=== PATIENT | male | born 2005 | race Caucasian/White ===

== ENCOUNTER 2024-11-17 05:00 | Emergency (ER) | payer OTHER ==
[~2024-11-17] VITALS: Ht 170.2 cm; Wt 52.0 kg
[2024-11-17 05:04] VITALS: TEMP 36.9; O2SAT 98
[2024-11-17 07:05] VITALS: BP 136/82; PULSE 98; RESP 18
[2024-11-17] MEDS: IBUPROFEN 600MG TABLET PO STA (07:05)
[2024-11-17] MEDS: ONDANSETRON 4MG ODT PO STA (07:05)
[2024-11-17 07:49] LABS: CHLORIDE 99 mEq/L (98-107); HEMATOCRIT. 35.4 % (42.0-52.0); HEMOGLOBIN. 12.5 g/dL (14.0-18.0); MEAN CORPUSCULAR HEMOGLOBIN 28.6 pg (28.0-32.0); MEAN CORPUSCULAR HGB CONC 35.3 g/dL (31.0-37.0); MEAN CORPUSCULAR VOLUME 81.1 fL (80.0-94.0); MEAN PLATELET VOLUME 8.8 fl (7.4-10.4); PLATELET 220 x1000/uL (130-400); POTASSIUM 3.1 mEq/L (3.5-5.1); RED BLOOD CELL COUNT 4.37 mill/uL (4.7-6.1); RED CELL DISTRIBUTION WIDTH 12.8 % (11.6-14.6); SODIUM 133 mEq/L (136-145); WHITE BLOOD COUNT 9.9 x1000/uL (4.5-11.0)
[2024-11-17 07:50] LABS: CALCIUM 8.7 mg/dL (8.7-10.4); CARBON DIOXIDE 24 mEq/L (21-32); DIFFERENTIAL COMMENT 1
[2024-11-17 07:53] LABS: INR 1.1; PROTHROMBIN TIME 11.9 sec (9.6-11.0)
[2024-11-17 07:55] LABS: CREATININE 0.7 mg/dL (0.6-1.3); GLUCOSE 140 mg/dL (70-105); UREA NITROGEN BLOOD 6 mg/dL (9-23)
[2024-11-17 08:44] LABS: ETHANOL BLOOD < 10 mg/dL (<10)
[2024-11-17 09:01] LABS: INFLUENZA TYPE A Presumptive Negative (Pres. Neg.)
[2024-11-17 09:02] LABS: INFLUENZA TYPE B Presumptive Negative (Pres. Neg.)
[2024-11-17 09:37] LABS: ALANINE AMINOTRANSFERASE 15 IU/L (10-49); ASPARTATE AMINOTRANSFERASE 20 IU/L (<34)
[2024-11-17 10:27] LABS: CLARITY URINE CLEAR (CLEAR); COLOR URINE DARK YELLOW (YELLOW); GLUCOSE URINE NEGATIVE (NEGATIVE); KETONES URINE 2+ (NEGATIVE); LEUKOCYTE ESTERASE URINE TRACE (NEGATIVE); NITRITE URINE NEGATIVE (NEGATIVE); OCCULT BLOOD URINE NEGATIVE (NEGATIVE); PROTEIN URINE 2+ (NEGATIVE); SPECIFIC GRAVITY URINE 1.026 (1.005-1.030)
[2024-11-17 10:47] LABS: *AMPHETAMINES SCREEN URINE NEGATIVE (NEGATIVE); *BARBITURATES SCREEN URINE NEGATIVE (NEGATIVE); *BENZODIAZEPINES SCREEN URINE NEGATIVE (NEGATIVE); *COCAINE SCREEN URINE NEGATIVE (NEGATIVE); METHADONE URINE SCREEN NEGATIVE (NEGATIVE)
[2024-11-17 10:48] LABS: CANNABINOID URINE SCREEN PRESUMPTIVE POSITIVE (NEGATIVE); ECSTASY MDMA SCREEN URINE NEGATIVE (NEGATIVE); OPIATES URINE SCREEN NEGATIVE (NEGATIVE); PHENCYCLIDINE URINE SCREEN NEGATIVE (NEGATIVE)
[2024-11-17 10:53] LABS: BACTERIA URINE 1+; RBC URINE 0-2 /hpf (0-2); SQUAMOUS EPITHELIAL CELL URINE NONE SEEN /lpf (RARE/1+); YEAST URINE NONE SEEN
[2024-11-17] MEDS: SODIUM CHLORIDE 0.9% 1,000 ML IV ONE (11:53)
[2024-11-17] MEDS: CEFTRIAXONE SODIUM 1G VIAL IV ONE (12:28)
[2024-11-17] MEDS: POTASSIUM CHLORIDE 20MEQ TABLET SR PO ONE (12:28)
[2024-11-17] MEDS ORDERED: IBUP-2029 MT (15:45)
[2024-11-17] MEDS ORDERED: ONDA4TAB50 MT (15:47)
[2024-11-17] MEDS ORDERED: NITR-87 MT (15:47)
[2024-11-17 16:07] VITALS: TEMP 98.4
[2024-11-17] MEDS: ACETAMINOPHEN 500MG TABLET PO ONE (16:07)
[2024-11-18 08:37] LABS: PLATELET ESTIMATE NORMAL
== END 2024-11-17 16:40 | disposition home or self-care (01) ==
LOC: ER 05:00
DX: R53.81 Other malaise (principal); R51.9 Headache, unspecified; Z20.822 Contact with and (suspected) exposure to COVID-19
CPT/HCPCS: 80305; 80048; 81003; 80320; 84450; 84460; 85025; 85610; 87086; 87804 ×2; 36415; 71045; 70450; 96374; 99285; 87426; Q0162; J0696; J7030; G0480